=== PATIENT | female | born 1965 | race African-American/Black ===

== ENCOUNTER 2019-01-30 03:11 | Emergency (ER) | payer SELFPAY ==
[~2019-01-30] VITALS: Ht 167.6 cm; Wt 73.0 kg
[2019-01-30 03:56] LABS: BASOPHILS % 0.5 % (0.0-2.0); EOSINOPHILS % 1.6 % (0.0-5.0); HEMATOCRIT. 41.2 % (36.0-48.0); HEMOGLOBIN. 13.7 g/dL (12.0-16.0); LYMPHOCYTES % 38.4 % (20.0-50.0); MEAN CORPUSCULAR HEMOGLOBIN 27.6 pg (28.0-32.0); MEAN PLATELET VOLUME 8.4 fl (7.4-10.4); MONOCYTES % 8.2 % (2.0-8.0); NEUTROPHILS % 51.3 % (40.0-76.0); PLATELET 236 x1000/uL (130-400); RED BLOOD CELL COUNT 4.96 mill/uL (4.2-5.4)
[2019-01-30 04:03] LABS: CHLORIDE 102 mEq/L (98-107)
[2019-01-30 04:07] LABS: ETHANOL BLOOD < 10 mg/dL
[2019-01-30] MEDS: POTASSIUM CHLORIDE 20MEQ TABLET SR PO SCH ×2 (04:39→04:40)
[2019-01-30] MEDS ORDERED: IBUPROFEN 600MG TABLET PO ONE (05:30)
[2019-01-30 05:33] VITALS: BP 132/88
== END 2019-01-30 06:23 | disposition home or self-care (01) ==
LOC: ER 03:11
DX: F12.10 Cannabis abuse, uncomplicated (principal); E87.6 Hypokalemia; F41.9 Anxiety disorder, unspecified; F17.210 Nicotine dependence, cigarettes, uncomplicated
CPT/HCPCS: 36415; 80320; 99283; G0480